=== PATIENT | female | born 1950 | race Caucasian/White ===

== ENCOUNTER → 2020-09-10 10:44 | Outpatient (BNVA) | payer MEDICARE, SELFPAY | PROVIDERS: PCP General Practice; Referring Provider General Practice; Visit Provider Specialist | DX: M19.012 Primary osteoarthritis, left shoulder (principal); M25.512 Pain in left shoulder | CPT/HCPCS: 73030 ==

== ENCOUNTER 2020-10-08 14:36 | Outpatient (CLI) | payer MEDICARE, SELFPAY ==
--- NOTE | 2020-10-08 15:15 | MR_ITS ---
WS: [id number] MRI LEFT SHOULDER HISTORY: M25.519 - Pain in unspecified shoulder COMPARISON: 09/10/2020 shoulder radiograph TECHNIQUE: Multiplanar sequences of the shoulder joint are submitted. Mild AC joint hypertrophy. There is increased soft tissue at the AC joint and osteophytes encroaching upon the supraspinatus. Increase fluid in the subacromial and subdeltoid bursa. Increased fluid mamta g the biceps tendon sheath. Biceps tendon is in normal position. There is increase fluid like signal in the central tendon at the biceps groove suggesting a partial tear. Humeral head is moderately high riding. Moderate to severe narrowing of the glenohumeral joint. Surfa ce irregularity and osteophyte formation with loss of cartilage in involving the entire humeral head and the glenoid. Full-thickness tear of the supraspinatus tendon with retraction to the medial justin l head. There is surface fraying along the residual tendon. Fluid along the tendon sheath of the infr aspinatus consistent with intrasubstance tear. The fluid extends to the glenohumeral joint. Additiona l insertion site tear of the infraspinatus tendon. Subscapularis tendon is intact although there is f raying distally. There is mild atrophy of the supraspinatus muscle without edema. Moderate joint effusion with small loose bodies surrounding the humeral head. Abnormal signal in the anterior superior labrum. MR/MR shoulder LT wo con* [id number] IMPRESSION: 1. Complete tear supraspinatus tendon with retraction just medial to the super ior humeral head. 2. Intrasubstance tear infraspinatus tendon with insertion site tear. 3. High riding humeral head with advanced degenerative changes at the glenohum eral joint. 4. Moderate joint effusion with loose bodies. Additional distention of the sub acromial and subdeltoid bursa. 5. Biceps tendon intrasubstance tear but no displacement or full-thickness tea r. 6. Anterior superior labral tear. 7. 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
== END 2020-10-08 14:37 | disposition home or self-care (01) ==
LOC: RADSHAW 14:39
PROVIDERS: PCP General Practice; Visit Provider Specialist
DX: M13.812 Other specified arthritis, left shoulder (principal); S43.492A Other sprain of left shoulder joint, initial encounter; M25.412 Effusion, left shoulder; M75.122 Complete rotator cuff tear or rupture of left shoulder, not specified as traumatic; X58.XXXA Exposure to other specified factors, initial encounter
CPT/HCPCS: 73221

== ENCOUNTER 2021-01-23 14:21 | Outpatient (CLI) | payer MEDICARE, SELFPAY ==
--- NOTE | 2021-01-23 14:36 | USCV_ITS ---
Matthias Heather Age: 70 Gender: F : 1950 Exam Date: 01/23/2021 14:45 Ordering Phys: Giovanni Mobley MD Technologist: Exam Location: [facility] [place] Indication: MURMUR BP: 113 / 7 HR: 92 Rhythm: Sinus Technical Quality: Adequate MEASUREMENTS (Male / Female) Normal Values 2D ECHO LV Diastolic Diameter PLAX 2.3 cm 4.2 - 5.9 / 3.9 - 5.3 cm IVS Diastolic Thickness 1.8 cm 0.6 - 1.0 / 0.6 - 0.9 cm LVPW Diastolic Thickness 1.3 cm 0.6 - 1.0 / 0.6 - 0.9 cm LVOT Diameter 2.0 cm LV Ejection Fraction MOD 2C 71.1 % LV Ejection Fraction 2C AL 70.8 % LA Diameter 2.6 cm LA Width 3.2 cm LA Height 4.4 cm RA Width 3.3 cm RA Height 4.0 cm DOPPLER AV Peak Velocity 152.0 cm/s LVOT Peak Velocity 164.0 cm/s AV Area Cont Eq vti 2.8 cm squared AV Area Cont Eq pk 3.5 cm squared MV Area PHT 5.0 cm squared Mitral E to A Ratio 0.5 MV E' Velocity 66.0 cm/s TR Peak Velocity 152.0 cm/s TR Peak Gradient 9.2 mmHg TV Peak E Velocity 93.0 cm/s Right Atrial Pressure 3.0 mmHg Pulmonary Artery Systolic Pressu 12.2 mmHg PV Peak Velocity 112.0 cm/s FINDINGS Left Ventricle Normal left ventricular cavity size and hyperdynamic systolic function. Left ventricular ejection fraction is estimated at 75 %. No regional wall motion abnormalities. Grade I diastolic dysfunction (abnormal relaxation filling pattern), normal to mildly elevated filling pressures. Right Ventricle Normal right ventricular size and systolic function, RVSP 12.2 mmHg. Right Atrium Normal right atrial size. Right atrial pressure estimated at 3 mm Hg. Left Atrium Normal left atrial size. Mitral Valve Structurally normal mitral valve. No mitral valve stenosis. No mitral valve regurgitation. Aortic Valve Aortic valve not well visualized. No aortic valve stenosis. No aortic valve regurgitation. Tricuspid Valve Structurally normal tricuspid valve. Pulmonic Valve Pulmonic valve not well visualized. No pulmonary valve stenosis. Trace pulmonary valve regurgitation. Pericardium No pericardial effusion. Aorta Normal size aortic root. CONCLUSIONS 1. Normal left ventricular cavity size and hyperdynamic systolic function. Left ventricular ejection fraction is estimated at 75 %. No regional wall motion abnormalities. Grade I diastolic dysfunction (abnormal relaxation filling pattern), normal to mildly elevated filling pressures. 2. Normal right ventricular size and systolic function. 3. Normal pulmonary artery pressure. 4. No significant valvular abnormality. 5. No prior similar studies to compare. Chen Glover MD (Electronically Signed) Final Date: 27 January 2021 14:14 S
== END 2021-01-23 14:22 | disposition home or self-care (01) ==
PROVIDERS: PCP Optometrist; Visit Provider Family Medicine
DX: R01.1 Cardiac murmur, unspecified (principal)
CPT/HCPCS: 93306